=== PATIENT | female | born 1990 | race African-American/Black ===

== ENCOUNTER → 2019-07-05 | Outpatient (CLI) | payer BC ==
[~2019-07-05] MED LIST: ALEVE 220MG220 MG PO; AMOXICILLIN 8751 TAB PO; CEPHALEXIN500 M1 PO; CLEOCIN HCL300 MG PO; LEXAPRO 10MG10 MG PO; MOTRIN 600600 MG/TAB PO; NAPROSYN500 MG PO; NORCO 325 MG-51 TAB PO; PERCOCET 325 MG1 TA2 PO; PRENATAL1 TA7 PO; SEPTRA DS 8001 TAB PO; TYLENOL EXTRA500 M1 PO; TYLENOL PM EXTR1 TA1 PO
== END ==
LOC: MHCPAIN 15:02
DX: G89.29 Other chronic pain (principal); M47.817 Spondylosis without myelopathy or radiculopathy, lumbosacral region; M54.16 Radiculopathy, lumbar region; M53.3 Sacrococcygeal disorders, not elsewhere classified
CPT/HCPCS: G0463